=== PATIENT | female | born 1980 | race African-American/Black ===

== ENCOUNTER 2022-04-24 06:39 | Emergency (ER) | payer BC ==
[~2022-04-24] VITALS: Ht 160 cm; Wt 59.0 kg
[2022-04-24 07:06] VITALS: BP 132/51
[2022-04-24] MEDS ORDERED: TOPUD PO (09:34)
[2022-04-24] MEDS ORDERED: AMOX1TAB16 PO (09:34)
== END 2022-04-24 11:43 | disposition home or self-care (01) ==
LOC: ER 06:39
DX: H66.92 Otitis media, unspecified, left ear (principal); J40 Bronchitis, not specified as acute or chronic; Z98.890 Other specified postprocedural states
CPT/HCPCS: 71045; 99283

== ENCOUNTER 2022-05-22 10:27 | Emergency (ER) | payer BC ==
[~2022-05-22] VITALS: Ht 160 cm; Wt 59.0 kg
[~2022-05-22 10:27] MED LIST: AMOX1TAB16 PO; TOPUD PO
[2022-05-22 10:37] VITALS: BP 135/81
[2022-05-22] MEDS ORDERED: VISCOUS LIDOCAINE 2% 15 ML UDC PO STA (12:31)
[2022-05-22] MEDS ORDERED: MAGNESIUM/ALUMINUM HYDROXIDE/SIMETHICONE 30ML UDC PO STA (12:31)
[2022-05-22] MEDS ORDERED: FAMOTIDINE 20MG TABLET PO ONE (12:45)
[2022-05-22 13:19] LABS: EOSINOPHILS % 1.2 % (0.0-5.0); HEMATOCRIT. 43.9 % (36.0-48.0); HEMOGLOBIN. 14.8 g/dL (12.0-16.0); LYMPHOCYTES % 36.6 % (20.0-50.0); MEAN CORPUSCULAR HEMOGLOBIN 33.3 pg (28.0-32.0); MEAN PLATELET VOLUME 7.7 fl (7.4-10.4); MONOCYTES % 5.8 % (2.0-8.0); NEUTROPHILS % 55.4 % (40.0-76.0); PLATELET 314 x1000/uL (130-400); RED BLOOD CELL COUNT 4.43 mill/uL (4.2-5.4); RED CELL DISTRIBUTION WIDTH 13.2 % (11.6-14.6)
[2022-05-22 13:30] LABS: HCG SCREEN NEGATIVE
[2022-05-22 14:08] LABS: CHLORIDE 107 mEq/L (98-107)
[2022-05-22] MEDS ORDERED: FAMO-135 MT (14:53)
[2022-05-22] MEDS ORDERED: MAG-55 MT (14:53)
[2022-05-22] MEDS ORDERED: VISCOUS LIDOCAINE 2% 15 ML UDC PO NR (14:57)
[2022-05-22] MEDS ORDERED: MAGNESIUM/ALUMINUM HYDROXIDE/SIMETHICONE 30ML UDC PO NR (14:57)
[2022-05-22] MEDS ORDERED: FAMOTIDINE 20MG TABLET PO NR (15:00)
== END 2022-05-22 17:59 | disposition home or self-care (01) ==
LOC: ER 10:27
DX: R10.13 Epigastric pain (principal); H92.02 Otalgia, left ear; K21.9 Gastro-esophageal reflux disease without esophagitis; Z90.49 Acquired absence of other specified parts of digestive tract
CPT/HCPCS: 36415; 80053; 84703; 85025; 93005; 99284

== ENCOUNTER 2025-03-03 16:14 | Emergency (ER) | payer SELFPAY ==
[~2025-03-03] VITALS: Ht 160 cm; Wt 64.0 kg
[~2025-03-03 16:14] MED LIST changes: +FAMO-135 MT; +MAG-55 MT
[2025-03-03] MEDS ORDERED: AMOX-494 MT (17:49)
[2025-03-03] MEDS ORDERED: IBUP-1455 MT (17:50)
[2025-03-03] MEDS: PREDNISONE 20MG TABLET PO ONE (17:51)
[2025-03-03 17:55] VITALS: PULSE 91; RESP 21; O2SAT 97
[2025-03-03] MEDS: IPRATROPIUM/ALBUTEROL 0.5-3(2.5)MG/3ML NEB HHN ONE (17:55)
[2025-03-03 18:31] VITALS: BP 137/85; PULSE 89; RESP 18; TEMP 36.9; O2SAT 98
== END 2025-03-03 18:35 | disposition home or self-care (01) ==
LOC: ER 16:14
DX: J06.9 Acute upper respiratory infection, unspecified (principal); J11.00 Influenza due to unidentified influenza virus with unspecified type of pneumonia; R00.0 Tachycardia, unspecified; J11.83 Influenza due to unidentified influenza virus with otitis media; H66.93 Otitis media, unspecified, bilateral; Z90.49 Acquired absence of other specified parts of digestive tract
CPT/HCPCS: 71045; 94640; 93005; 99285; 87426; J7512; Z7610 ×2; 94070; 94664